=== PATIENT | female | born 1980 | race Caucasian/White ===

== ENCOUNTER 2018-02-01 09:04 | Inpatient (IN) | payer OTHER ==
[2018-02-01] MEDS ORDERED: Lactated Ringers 1000 ML Bag* 1,000 ML IV ONE (10:32)
--- NOTE | 2018-02-01 10:45 | HP ---
General Information - Reason for Visit Contractions since last night, picking up in frequency and intensity this am. Also notice bloody mucus discharge - General Information Maternal Age: 37 Grav: 3 Para: 2 SAB: 0 IEA: 0 Estimated Due Date: 02/06/18 Determined By: LMP Gestational Age in Weeks/Days: 39+2 Maternal Blood Type and Rh: O Positive - Results this Serology/RPR Result: Non-Reactive Rubella Result: Immune HBsAg Result: Negative HIV Result: Negative GBS Culture Result: Negative Past Medical History Delivery History: Hx Uncomplicated Vaginal Delivery Delivery History Comment: 2X SVB 2012, 2014 Pertinent Past Medical History: Non-Contributory Pertinent Past Surgical History: None Pertinent Family History: Non-Contributory Family History Comment: Pulmonary fibrosis Leukemia Prostate Ca HTN Hyperlipedemia - Antepartal Records Antepartal Records: Reviewed, Uncomplicated Review of Systems Constitutional: Uncomfortable CV Complaint: No Respiratory: Shortness of Breath: No Gastrointestinal: No Nausea/Vomiting, Soft Stool Genitourinary: No Dysuria, No Leaking Fluid, Spotting Musculoskeletal: Back Pain, Contractions Neurological: No Headache, No Visual Changes Movement: Normal Exam Allergies/Adverse Reactions: Allergies No Known Allergies Allergy (Verified 02/01/18 09:51) BP 125/61 T 98.0 HR 85 RR 18 O2 100 - Measurements Height: 5 ft 1 in Weight: 214 lb Weight in lbs: [phone] Body Mass Index (BMI): 40.4 Pre- Weight: 193 lb Weight Gained This : 21 lbs and 0 ozs - Exam Breast: Breast Exam Deferred CVA: No CVA Tenderness Extremities: No Edema Heart: Normal Rhythm/Heart Sounds HEENT: No Significant Findings Lungs: Clear Bilaterally Rectal: Rectal Exam Deferred Reflexes: DTR 2+, - - clonus Thyroid: No Thyromegaly - Abdominal Exam Abdomen Exam: Non-Tender - Ultrasound/Biophysical Profile Ultrasound Status: Not Done Targeted Exam Findings See L&D Outpatient Visit Provider Note for Findings: N/A Estimated Weight: 7lb Cervical Exam: 6cm Effacement: 80% Station: -2 Presenting Part: Vertex Membrane Status: Bulging Bleeding/Discharge: Bloody Show EFM Findings - External Monitor Findings Baseline Heart Rate: 150 External Monitor Findings: Accelerations Present, No Pattern of Variable or Late Decelerations, Variability Moderate Contractions: Regular, Moderate, 45-90 Seconds Contraction Frequency: Q 5-7 Assessment/Plan - Assessment IUP @ 39+2 weeks gestation in active labor. IBOW. No evidence acidemia - Plan Plan: Admit - Anticipate Vaginal Delivery Plan Comment: Admit to L&D. Patient desires unmedicated delivery. Has cord blood collection kit. Anticipate SVB. - Date/Time of Admission Date of Admission: 02/01/18 Time of Admission: 10:11
[2018-02-01] MEDS ORDERED: Lactated Ringers 1000 ML Bag* 1,000 ML IV SCH ×2 (11:00→16:00)
[2018-02-01] MEDS ORDERED: Witch Hazel PAD* JAR ONE (15:19)
[2018-02-01] MEDS ORDERED: Acetaminophen TAB* 325 MG PO PRN (15:36)
[2018-02-01] MEDS ORDERED: Dibucaine 1% 28.35 GM TUBE PR PRN (15:36)
[2018-02-01] MEDS ORDERED: Witch Hazel PAD* JAR TOPICAL PRN (15:36)
[2018-02-01] MEDS ORDERED: Glycerin ADULT SUPP PR PRN (15:36)
--- NOTE | 2018-02-01 16:40 | PROCNOTE ---
[facility] OB: Delivery Note - Delivery A Date of : 02/01/18 Time of : 14:58 [place] Sex: Male Weight at : 6 lb 3 oz Score 1 Minute: 8 Score 5 Minutes: 9 Gestational Age in Weeks and Days at Delivery: 39 Weeks and 2 Days Delivery Method: Spontaneous Vaginal Labor: Spontaneous Did Patient attempt ?: N/A, No Previous Amniotic Fluid: Clear Estimated Blood Loss: 200 Anesthesia/Analgesia: None - Nursery Level of Nursery: Regular/Bedside - Perineum Perineal Injury: Abrasion Only - Not Repaired Perineal Repair: None - Events Delivery Events of Note: None Apply - Additional Delivery Notes Additional Delivery Notes: Patient admitted in active labor with expected progression to complete with urge to push. Coached through position changes to hands and knees. LOL 3'30", pushed 22 min. Baby born OA to ERIBERTO @ 1458. Shoulders followed easily with maternal efforts. Loose nuchal unwrapped after delivery. Mother turned over and baby to maternal abdomen with spontaneous cry, HR > 110. Cord doubly clamped and cut by FOB. Cord blood collected per kit instructions and FOB aware to call company for pickup. Placenta delivered with gentle cord traction @ 1515 and noted to have 3VC, no abnormalities. Fundus firm to massage, no bleeding noted. EBL 200ml. Perineal abrasion hemostatic and not repaired. Baby name Pk Harden
[2018-02-01] MEDS: Docusate CAP* 100 MG PO SCH (19:50)
[2018-02-01] MEDS: Ibuprofen TAB* 600 MG PO PRN (22:02)
[2018-02-02 06:29] LABS: ABS Basophils 0.1 10^3/ul (0-0.2); ABS Eosinophils 0.1 10^3/ul (0-0.6); ABS Lymphocytes 3.6 10^3/ul (1.0-4.8); ABS Monocytes 0.7 10^3/ul (0-0.8); ABS Neutrophils 9.8 10^3/ul (1.5-7.7); ABS Nucleated RBC 0 10^3/ul; Eosinophil % 0.7 % (0-6); Hematocrit 38 % (35-47); Hemoglobin 12.9 g/dl (12.0-16.0); Lymphocyte % 25.3 % (25-47); Mean Corpuscular HGB Conc 34 g/dl (31-36); Mean Corpuscular Hemoglobin 30 pg (27-31); Mean Corpuscular Volume 88 fL (80-97); Mean Platelet Volume 8.9 fL (7.4-10.4); Nucleated Red Blood Cells % 0; Platelet Count 217 10^3/ul (150-450); Red Blood Count 4.34 10^6/ul (4.00-5.40); Red Cell Distribution Width 14 % (10.5-15); White Blood Count 14.4 10^3/ul (3.5-10.8)
[2018-02-02] MEDS ORDERED: Ferrous Gluconate TAB* 324 MG TAB PO SCH (09:00)
[2018-02-02] MEDS: Ibuprofen TAB* 600 MG PO PRN ×3 (09:15→21:24)
[2018-02-02] MEDS: Docusate CAP* 100 MG PO SCH ×3 (09:16→21:24)
[2018-02-03] MEDS: Ibuprofen TAB* 600 MG PO PRN (04:26)
[2018-02-03 08:30] VITALS: BP 110/72
[2018-02-03] MEDS: Docusate CAP* 100 MG PO SCH (09:35)
== END 2018-02-03 12:44 | disposition home or self-care (01) | DRG 807 ==
LOC: MCHOBOUT 09:04 → MCHOB 10:11
PROVIDERS: ADMIT Midwife; ATTEND Midwife
PROC: 4A1HXCZ Monitoring of Products of Conception, Cardiac Rate, External Approach (ICD-10-PCS; principal; 2018-02-01)
PROC: 10E0XZZ Delivery of Products of Conception, External Approach (ICD-10-PCS; 2018-02-01)
DX: O69.81X0 Labor and delivery complicated by cord around neck, without compression, not applicable or unspecified (principal); Z37.0 Single live birth; O71.82 Other specified trauma to perineum and vulva; Z3A.39 39 weeks gestation of pregnancy
CPT/HCPCS: 36415; 85025; A9270-GY